=== PATIENT | male | born 1945 | race Caucasian/White ===

== ENCOUNTER 2017-11-26 18:48 | Inpatient (IN) | payer BC ==
[~2017-11-26] VITALS: Ht 175.3 cm; Wt 88.5 kg
[2017-11-26 20:24] LABS: CALCIUM 8.3 mg/dL (8.5-10.1); CARBON DIOXIDE 19.9 mmol/L (21-32); CHLORIDE SERUM 88 mmol/L (98-107); CREATININE SERUM 1.6 mg/dL (0.7-1.3); GLUCOSE SERUM 108 mg/dL (74-106); POTASSIUM SERUM 3.9 mmol/L (3.5-5.1); SODIUM SERUM 127 mmol/L (136-145)
[2017-11-26 20:30] LABS: PLATELET COUNT 237 x10^3mcL (130-400); RED CELL DISTRIBUTION WIDTH 13.9 % (11.5-14.5)
[2017-11-26 20:35] LABS: ALKALINE PHOSPHATASE 149 U/L (46-116); ALT/SGPT 36 U/L (16-63); AST/SGOT 44 U/L (15-37); BILIRUBIN TOTAL 2.21 mg/dL (0.20-1.00); TOTAL PROTEIN, SERUM 6.7 g/dL (6.4-8.2)
[2017-11-26 20:36] LABS: ALBUMIN 3.1 g/dL (3.4-5.0)
[2017-11-26] MEDS ORDERED: VENTOLIN H0.09 MG/A1 INH (20:42)
[2017-11-26] MEDS ORDERED: FUROSEMIDE20 MG PO (20:43)
[2017-11-26] MEDS ORDERED: ALLOPURINOL100 MG PO (20:43)
[2017-11-26] MEDS ORDERED: DOXYCYCLINE HY100 MG PO (20:43)
[2017-11-26] MEDS ORDERED: LOTREL1 CA2 PO (20:43)
[2017-11-26] MEDS ORDERED: TOPROL XL25 MG PO (20:44)
[2017-11-26] MEDS ORDERED: CLOPIDOGREL75 M1 PO (20:44)
[2017-11-26 20:50] LABS: CK-MB 2.7 ng/mL (0-3.6)
[2017-11-26 22:19] VITALS: BP 95/44
[2017-11-26 22:44] LABS: FREE T4 1.57 ng/dL (0.76-1.46); FREE THYROXINE INDEX 3.1 ug/dL (1.4-4.5); T4(THYROXINE) 8.7 ug/dL (4.7-13.3)
[2017-11-26 23:00] VITALS: BP 95/44
[2017-11-26 23:05] LABS: MAGNESIUM 1.1 mg/dL (1.8-2.4); PHOSPHOROUS 4.6 mg/dL (2.5-4.9)
[2017-11-26 23:08] LABS: CHOLESTEROL/HDL RATIO 5.2
[2017-11-26 23:09] LABS: UA SPECIFIC GRAVITY 1.015 (1.005-1.035); microscopic required? YES; urine erythrocyte NEGATIVE (NEGATIVE)
[2017-11-26 23:10] VITALS: BP 103/48
[2017-11-27] VITALS (9 sets, daily range): BP systolic 88–135; BP diastolic 42–77
[2017-11-27 07:20] LABS: CALCIUM 7.3 mg/dL (8.5-10.1); CARBON DIOXIDE 23.4 mmol/L (21-32); CHLORIDE SERUM 94 mmol/L (98-107); CREATININE SERUM 1.4 mg/dL (0.7-1.3); GLUCOSE SERUM 105 mg/dL (74-106); MAGNESIUM 1.8 mg/dL (1.8-2.4); PHOSPHOROUS 4.1 mg/dL (2.5-4.9); POTASSIUM SERUM 3.6 mmol/L (3.5-5.1); SODIUM SERUM 130 mmol/L (136-145)
[2017-11-27 07:27] LABS: RED CELL DISTRIBUTION WIDTH 13.1 % (11.5-14.5)
[2017-11-27 07:39] LABS: IRON 38 ug/dL (65-170)
[2017-11-27 07:41] LABS: TOTAL IRON BINDING CAPACITY 197 ug/dL (250-450)
[2017-11-27 07:46] LABS: BASOPHIL % 0.1 % (0-2); PLATELET COUNT 163 x10^3mcL (130-400)
[2017-11-27 12:30] LABS: RED BLOOD CELLS 2.92 M/mm3 (4.52-5.90)
[2017-11-27 13:47] LABS: T3 TOTAL 0.68 ng/mL
[2017-11-28 03:17] VITALS: BP 100/60
[2017-11-28 05:53] LABS: CALCIUM 7.9 mg/dL (8.5-10.1); CARBON DIOXIDE 21.4 mmol/L (21-32); CHLORIDE SERUM 98 mmol/L (98-107); GLUCOSE SERUM 173 mg/dL (74-106); MAGNESIUM 1.8 mg/dL (1.8-2.4); PHOSPHOROUS 4.1 mg/dL (2.5-4.9); PLATELET COUNT 161 x10^3mcL (130-400); POTASSIUM SERUM 3.2 mmol/L (3.5-5.1); RED CELL DISTRIBUTION WIDTH 13.8 % (11.5-14.5); SODIUM SERUM 135 mmol/L (136-145)
[2017-11-28 05:55] LABS: BASOPHIL % 0 % (0-2)
[2017-11-28 07:44] VITALS: BP 102/58
[2017-11-28 12:00] VITALS: BP 91/65
[2017-11-28 16:11] VITALS: BP 100/65
[2017-11-28 19:43] VITALS: BP 110/69
[2017-11-28 23:48] VITALS: BP 90/51
[2017-11-29] VITALS (9 sets, daily range): BP systolic 85–114; BP diastolic 36–67
[2017-11-29 03:45] LABS: BASOPHIL % 0.9 % (0-2); PLATELET COUNT 158 x10^3mcL (130-400); RED CELL DISTRIBUTION WIDTH 14.4 % (11.5-14.5)
[2017-11-29 04:04] LABS: CALCIUM 8.1 mg/dL (8.5-10.1); CARBON DIOXIDE 26.2 mmol/L (21-32); CHLORIDE SERUM 101 mmol/L (98-107); GLUCOSE SERUM 170 mg/dL (74-106); POTASSIUM SERUM 3.2 mmol/L (3.5-5.1); SODIUM SERUM 137 mmol/L (136-145)
[2017-11-29 20:20] LABS: APPEARANCE FLUID CLOUDY; COLOR FLUID RED; SOURCE FLUID PLEURAL
[2017-11-29 20:21] LABS: LYMPHOCYTE FLUID 42 %; MONOCYTE FLUID 14 %
[2017-11-29 20:22] LABS: RBC FLUID 437 /cumm; WBC FLUID 20 /cumm
[2017-11-30 03:32] VITALS: BP 101/63
[2017-11-30 07:56] LABS: BASOPHIL % 0.1 % (0-2); PLATELET COUNT 133 x10^3mcL (130-400); RED CELL DISTRIBUTION WIDTH 14.3 % (11.5-14.5)
[2017-11-30 08:00] VITALS: BP 113/72
[2017-11-30 11:26] LABS: CALCIUM 8.2 mg/dL (8.5-10.1); CARBON DIOXIDE 25.1 mmol/L (21-32); CHLORIDE SERUM 105 mmol/L (98-107); CREATININE SERUM 1.2 mg/dL (0.7-1.3); GLUCOSE SERUM 158 mg/dL (74-106); MAGNESIUM 2.1 mg/dL (1.8-2.4); PHOSPHOROUS 3.3 mg/dL (2.5-4.9); POTASSIUM SERUM 3.4 mmol/L (3.5-5.1); SODIUM SERUM 144 mmol/L (136-145)
[2017-11-30 12:00] VITALS: BP 112/87
[2017-11-30 15:36] VITALS: Ht 175.3 cm; Wt 88.5 kg
[2017-11-30 15:56] VITALS: BP 103/68
[2017-11-30 20:00] VITALS: BP 119/79
[2017-12-01] VITALS (7 sets, daily range): BP systolic 104–127; BP diastolic 64–89
[2017-12-01 07:11] LABS: CALCIUM 8.5 mg/dL (8.5-10.1); CARBON DIOXIDE 22.5 mmol/L (21-32); CHLORIDE SERUM 110 mmol/L (98-107); CREATININE SERUM 1.1 mg/dL (0.7-1.3); GLUCOSE SERUM 142 mg/dL (74-106); MAGNESIUM 2.4 mg/dL (1.8-2.4); PHOSPHOROUS 3.9 mg/dL (2.5-4.9); POTASSIUM SERUM 3.6 mmol/L (3.5-5.1); SODIUM SERUM 146 mmol/L (136-145)
[2017-12-01 09:29] LABS: PLATELET COUNT 102 x10^3mcL (130-400); RED CELL DISTRIBUTION WIDTH 15.2 % (11.5-14.5)
[2017-12-01 09:30] LABS: BASOPHIL % 0 % (0-2)
[2017-12-02 03:56] VITALS: BP 150/48
[2017-12-02 05:33] LABS: BASOPHIL % 0.1 % (0-2); PLATELET COUNT 94 x10^3mcL (130-400)
[2017-12-02 05:34] LABS: CALCIUM 8.6 mg/dL (8.5-10.1); CARBON DIOXIDE 28.7 mmol/L (21-32); CHLORIDE SERUM 114 mmol/L (98-107); GLUCOSE SERUM 154 mg/dL (74-106); MAGNESIUM 2.2 mg/dL (1.8-2.4); PHOSPHOROUS 4.1 mg/dL (2.5-4.9); POTASSIUM SERUM 3.4 mmol/L (3.5-5.1); SODIUM SERUM 154 mmol/L (136-145)
[2017-12-02 07:45] VITALS: BP 130/75
[2017-12-02 12:08] VITALS: BP 122/85
[2017-12-02 15:43] VITALS: BP 114/79
[2017-12-02 19:30] VITALS: BP 105/82
[2017-12-02 23:21] VITALS: BP 113/81
[2017-12-03 03:39] VITALS: BP 114/87
[2017-12-03 04:59] LABS: CALCIUM 8.5 mg/dL (8.5-10.1); CARBON DIOXIDE 32.6 mmol/L (21-32); CHLORIDE SERUM 116 mmol/L (98-107); CREATININE SERUM 1.1 mg/dL (0.7-1.3); GLUCOSE SERUM 160 mg/dL (74-106); MAGNESIUM 2.2 mg/dL (1.8-2.4); PHOSPHOROUS 4.8 mg/dL (2.5-4.9); POTASSIUM SERUM 3.6 mmol/L (3.5-5.1); SODIUM SERUM 157 mmol/L (136-145)
[2017-12-03 05:07] LABS: BASOPHIL % 0.1 % (0-2); PLATELET COUNT 81 x10^3mcL (130-400); RED CELL DISTRIBUTION WIDTH 14.5 % (11.5-14.5)
[2017-12-03 07:13] VITALS: BP 99/67
[2017-12-03 11:07] VITALS: BP 103/73
[2017-12-03] MEDS ORDERED: ELIQUIS2.5 MG PO (11:57)
[2017-12-03] MEDS ORDERED: XOP0.63 HHN (11:57)
[2017-12-03] MEDS ORDERED: METOPROLOL TART25 M1 PO (12:00)
[2017-12-03 12:21] VITALS: BP 103/73
== END 2017-12-03 13:20 | disposition short-term general hospital (02) | DRG 871 ==
LOC: ED 18:48 → IC 21:03 → DU 21:03 → IC 11-27 11:24
PROVIDERS: Emergency Medicine; Family Medicine; Student in an Organized Health Care Education/Training Program
PROC: 0W993ZZ Drainage of Right Pleural Cavity, Percutaneous Approach (ICD-10-PCS; principal; 2017-12-03)
DX: A41.9 Sepsis, unspecified organism (principal); J69.0 Pneumonitis due to inhalation of food and vomit; N17.0 Acute kidney failure with tubular necrosis; I50.43 Acute on chronic combined systolic (congestive) and diastolic (congestive) heart failure; R65.21 Severe sepsis with septic shock; J96.01 Acute respiratory failure with hypoxia; E43 Unspecified severe protein-calorie malnutrition; E87.1 Hypo-osmolality and hyponatremia; N39.0 Urinary tract infection, site not specified; I42.0 Dilated cardiomyopathy; J90 Pleural effusion, not elsewhere classified; I24.8 Other forms of acute ischemic heart disease; R65.20 Severe sepsis without septic shock; I11.0 Hypertensive heart disease with heart failure; E83.42 Hypomagnesemia; M94.0 Chondrocostal junction syndrome [Tietze]; I35.0 Nonrheumatic aortic (valve) stenosis; I73.9 Peripheral vascular disease, unspecified; R16.1 Splenomegaly, not elsewhere classified; D64.9 Anemia, unspecified; F10.10 Alcohol abuse, uncomplicated; Z68.32 Body mass index [BMI] 32.0-32.9, adult; Z87.891 Personal history of nicotine dependence
CPT/HCPCS: 32555; 36600; 82962; 83880; 84439; 88344; 92610-GN; 97530-GP; C9113; G0480; J0282; J1644; J1940; J1956; J2001; J2060; J2543; J2704; J2920; J3475; J3480; J3490; J7030; J7060; J7620; J7626; P9047; Q0092